=== PATIENT | male | born 2000 | race Caucasian/White ===

== ENCOUNTER 2019-08-25 20:16 | Emergency (ER) | payer BC, MEDICAID ==
[~2019-08-25] VITALS: Ht 185.4 cm; Wt 81.6 kg
--- NOTE | 2019-08-25 20:17 | NUR ---
BIB FRIENDS C/O POSSIBLE HEROIN OVERDOSE. PER FRIENDS REPORT PT SUICIDAL. PT ADMITS SMOKING MARIJUANA. PT WAS PLACED ON A MONITOR AND CLOSE SUPERIVISION FOR SAFETY. VSS. WILL CONT TO MONITOR ,
--- NOTE | 2019-08-25 20:22 | NUR ---
Dr. Dunham at the bed side
[2019-08-25 20:41] LABS: BASOPHILS % (AUTO) 0.3 % (0.0-2.0); EOSINOPHILS % (AUTO) 0.3 % (0.0-6.0); HEMATOCRIT 40 % (39-51); HEMOGLOBIN 13.9 g/dL (13.5-17.5); LYMPHOCYTES % (AUTO) 13.7 % (20.0-44.0); MEAN CORPUSCULAR HGB CONC 35 g/dl (31.0-36.0); MEAN CORPUSCULAR VOLUME 92 fL (80-96); MONOCYTES # (AUTO) 0.6 /CMM (0.1-1.30); MONOCYTES % (AUTO) 8.1 % (2.0-12.0); NEUTROPHILS # (AUTO) 5.9 /CMM (1.8-8.9); NEUTROPHILS % (AUTO) 77.6 % (43.0-81.0); PLATELET COUNT (AUTO) 271 /CMM (150-450); RED BLOOD CELL COUNT(AUTO) 4.37 MIL/uL (4.5-6.0); WHITE BLOOD COUNT (AUTO) 7.6 K/uL (4.3-11.0)
[2019-08-25 20:52] LABS: CALCIUM, SERUM 8.7 mg/dL (8.5-10.1); CARBON DIOXIDE 27 mmol/L (21-32); CHLORIDE 105 mmol/L (98-107); CREATININE 1.2 mg/dL (0.6-1.3); GLUCOSE 123 mg/dL (74-106); POTASSIUM 3.8 mmol/L (3.5-5.1); SODIUM SERUM 142 mmol/L (136-145); UREA NITROGEN, BLOOD 18 mg/dL (7-18)
[2019-08-25 21:08] LABS: ACETAMINOPHEN 0 ug/ml (10-30); ALANINE AMINOTRANSFERASE 22 U/L (12-78); ALCOHOL, BLOOD < 3 mg/dL (0-0); ALKALINE PHOSPHATASE 111 U/L (46-116); ASPARTATE AMINOTRANSFERASE 24 U/L (15-37); BILIRUBIN,DIRECT 0.2 mg/dL (0.0-0.2); BILIRUBIN,TOTAL 0.5 mg/dL (0.2-1.0); SALICYLATE 1.2 mg/dL (2.8-20.0); TOTAL PROTEIN, SERUM 6.8 g/dL (6.4-8.2)
--- NOTE | 2019-08-26 00:42 | NUR ---
PT REMAINED SLEEPING W/ CLOSE SUPERVISION AND REFUSED TO PROVIDE URINE SAMPLE.
--- NOTE | 2019-08-26 03:51 | NUR ---
PT AWAKE [facility]HU[facility]ON. AMBULATORY W/ STEADY GAITS. REPORTED WILLING TO LEAVE. PT WAS PROVIDED W/ HIS FRIEND'S ([employer]) PHONE NUMBER. PT CALLED THE FRIEND AND ARRANGING THE TRANSPORTATION, MD Ihsan MAE AND MEDICALLY CLEARED THE PT FOR D/C HOME,
--- NOTE | 2019-08-26 03:53 | NUR ---
PT DENIED SI / HI. REPORTED IS WILLING TO HURT OR KILL HIMSELF AND HAS NO PLAN TO DO SO.
--- NOTE | 2019-08-26 05:04 | NUR ---
PT WAS PICKED UP BY HIS FRIEND IN STABLE CODITION. WALKED OUT ALERT AND ORIENTED W. STEADY GAITS. Patient discharged to home in stable condition. Written and verbal after care instructions given. Patient verbalized understanding of instruction.
[2019-08-26 05:06] VITALS: BP 124/68
[2019-08-26] MEDS ORDERED: CALCIUM CHLORIDE 1,000 MG/10 ML DISP.SYRIN ONE (14:44)
[2019-08-26] MEDS ORDERED: INSULIN REGULAR, HUMAN 100 UNIT/ML 10 ML VIAL ONE (14:51)
== END 2019-08-26 05:07 | disposition home or self-care (01) ==
LOC: ER 20:18
DX: F19.10 Other psychoactive substance abuse, uncomplicated (principal)
CPT/HCPCS: 36415; 80048; 80076; 80307; 80329; 85025; 99285; G0480; J1815; J3490